=== PATIENT | female | born 2000 ===

== ENCOUNTER 2021-11-22 12:15 | Outpatient (CLI) | payer OTHER | END 2021-11-22 12:46 | disposition home or self-care (01) | LOC: PRENATAL 12:15 | PROVIDERS: ATTEND Obstetrics & Gynecology Maternal & Fetal Medicine | DX: Z34.02 Encounter for supervision of normal first pregnancy, second trimester (principal) ==

== ENCOUNTER 2021-12-16 01:01 | Outpatient (CLI) | payer OTHER ==
[2021-12-16] MEDS ORDERED: PRENATAL CAPLE1 EAC1 (02:06)
[2021-12-16] MEDS ORDERED: FOLIC ACID20 MG (02:07)
[2021-12-16] MEDS ORDERED: SERTRALINE HCL25 MG (02:09)
[2021-12-16] MEDS ORDERED: PROBIOTIC250 MG (02:09)
[2021-12-16] MEDS ORDERED: ZYRTEC10 MG (02:10)
== END 2021-12-16 10:40 | disposition home or self-care (01) ==
LOC: OBS/DEL 01:01 → PRENATAL 12-21 08:00
PROVIDERS: ATTEND Obstetrics & Gynecology
DX: O26.892 Other specified pregnancy related conditions, second trimester (principal); Z3A.22 22 weeks gestation of pregnancy; Z91.011 Allergy to milk products; Z91.013 Allergy to seafood; Z91.018 Allergy to other foods

== ENCOUNTER 2022-01-18 12:55 | Outpatient (CLI) | payer OTHER ==
[~2022-01-18 12:55] MED LIST: FOLIC ACID20 MG; PRENATAL CAPLE1 EAC1; PROBIOTIC250 MG; SERTRALINE HCL25 MG; ZYRTEC10 MG
== END 2022-01-18 14:20 | disposition home or self-care (01) ==
LOC: PRENATAL 12:55
PROVIDERS: ATTEND Obstetrics & Gynecology Maternal & Fetal Medicine
DX: O35.0XX0 Maternal care for (suspected) central nervous system malformation in fetus, not applicable or unspecified (principal); O35.3XX0 Maternal care for (suspected) damage to fetus from viral disease in mother, not applicable or unspecified; O99.342 Other mental disorders complicating pregnancy, second trimester; Z14.8 Genetic carrier of other disease; Z3A.27 27 weeks gestation of pregnancy; Z91.011 Allergy to milk products; Z91.018 Allergy to other foods; Z91.013 Allergy to seafood; Z91.048 Other nonmedicinal substance allergy status

== ENCOUNTER 2022-03-07 13:47 | Outpatient (CLI) | payer OTHER | END 2022-03-07 14:50 | disposition home or self-care (01) | LOC: PRENATAL 13:47 | PROVIDERS: ATTEND Obstetrics & Gynecology Maternal & Fetal Medicine | DX: O35.0XX0 Maternal care for (suspected) central nervous system malformation in fetus, not applicable or unspecified (principal); O35.3XX0 Maternal care for (suspected) damage to fetus from viral disease in mother, not applicable or unspecified; O99.341 Other mental disorders complicating pregnancy, first trimester; Z14.8 Genetic carrier of other disease; Z3A.33 33 weeks gestation of pregnancy ==

== ENCOUNTER 2022-04-05 21:15 | Inpatient (IN) | payer OTHER ==
[~2022-04-05] VITALS: Ht 170.2 cm; Wt 79.4 kg
[2022-04-06] MEDS ORDERED: FLUCONAZOLE150 MG (14:06)
[2022-04-06] MEDS ORDERED: FLONASE16 GM (14:06)
[2022-04-06] MEDS ORDERED: SERTRALINE HCL25 MG (14:07)
== END 2022-04-08 12:31 | disposition home or self-care (01) | DRG 807 ==
LOC: OB/GYN 21:15 → LDR 21:15 → OB/GYN 04-06 16:51
PROVIDERS: ADMIT Obstetrics & Gynecology; ATTEND Obstetrics & Gynecology
PROC: 3E0P7VZ Introduction of Hormone into Female Reproductive, Via Natural or Artificial Opening (ICD-10-PCS; 2022-04-05)
PROC: 4A1HXCZ Monitoring of Products of Conception, Cardiac Rate, External Approach (ICD-10-PCS; 2022-04-05)
PROC: 10E0XZZ Delivery of Products of Conception, External Approach (ICD-10-PCS; principal; 2022-04-06)
PROC: 0KQM0ZZ Repair Perineum Muscle, Open Approach (ICD-10-PCS; 2022-04-06)
PROC: 0UQMXZZ Repair Vulva, External Approach (ICD-10-PCS; 2022-04-06)
PROC: 3E033VJ Introduction of Other Hormone into Peripheral Vein, Percutaneous Approach (ICD-10-PCS; 2022-04-06)
DX: O70.1 Second degree perineal laceration during delivery (principal); Z37.0 Single live birth; O71.82 Other specified trauma to perineum and vulva; Z3A.38 38 weeks gestation of pregnancy; Z20.822 Contact with and (suspected) exposure to COVID-19